=== PATIENT | female | born 1945 | race Caucasian/White ===

== ENCOUNTER 2022-09-12 15:17 | Inpatient (IN) | payer MEDICARE, BC ==
[2022-09-12 16:06] LABS: #Eosinphils 0.1 thou/uL (0.0-0.7); #Lymphocytes 2.3 thou/uL (1.20-3.40); #Monocytes 1.5 thou/uL (0.11-0.59); #Neutrophils 6.3 thou/uL (1.40-6.50); %Basophils 0.3 % (0.0-1.0); %Eosinophils 1.1 % (0.0-10.0); %Lymphocytes 22.3 % (21.0-51.0); %Monocytes 14.4 % (0.0-10.0); %Neutrophils 61.9 % (42.0-75.0); Hemoglobin 15.9 g/dL (12.0-16.0); Mean Corpuscular HGB CONC 32.2 g/dL (32.0-36.0); Mean Corpuscular Hemoglobin 31.7 pg (27.0-31.0); Mean Corpuscular Volume 98.2 fL (78.0-98.0); Mean Platelet Volume 9.2 fL (7.4-10.4); Platelet Count 300 thou/uL (130-400); RBC Distribution Width 12.9 % (11.5-14.5); Red Blood Cell (RBC) Count 5.03 mill/uL (4.20-5.40); White Blood Cell (WBC) Count 10.2 thou/uL (4.8-10.8)
[2022-09-12] MEDS ORDERED: Diltiazem 125 MG/25 ML ONE (16:26)
[2022-09-12] MEDS ORDERED: Enoxaparin Sodium 60 MG/0.6 ML SYRINGE ONE (16:26)
[2022-09-12 16:35] LABS: ALT (SGPT) 17 U/L (8-55); AST (SGOT) 31 U/L (5-34); Albumin 3.5 g/dL (3.4-4.8); Alkaline Phosphatase 92 U/L (40-110); Anion Gap 19 mmol/L (10-20); BUN (Urea Nitrogen) 11 mg/dL (9.8-20.1); Bilirubin, Total 1.7 mg/dL (0.2-1.2); Calc. Creatinine Clearance 0 mL/min (70-130); Calcium 8.8 mg/dL (7.8-10.44); Carbon Dioxide 24 mmol/L (23-31); Chloride 100 mmol/L (98-107); Estimated GFR 78; Globulin 3.5 g/dL (2.4-3.5); Glucose 96 mg/dL (83-110); Sodium 140 mmol/L (136-145)
[2022-09-12 16:44] LABS: CKMB 3.2 ng/mL (0-6.6)
[2022-09-12 16:49] LABS: Potassium 2.9 mmol/L (3.5-5.1)
[2022-09-12] MEDS ORDERED: Electrolyte Replacement Protocol FS SCH (17:30)
[2022-09-12] MEDS ORDERED: hydrOXYzine 25 MG TAB ONE (17:37)
[2022-09-12] MEDS ORDERED: Potassium Chloride 20 MEQ TAB ONE (17:38)
[2022-09-12] MEDS ORDERED: hydrOXYzine 25 MG TAB PO SCH (17:45)
[2022-09-12] MEDS ORDERED: Diltiazem 125 MG in Sodium Chloride 0.9% 100 ML IVPB SCH (18:15)
[2022-09-12] MEDS ORDERED: Acetaminophen 325 MG TAB PO PRN (18:33)
[2022-09-12] MEDS ORDERED: Melatonin 3 MG TAB PO PRN (18:35)
[2022-09-12] MEDS ORDERED: Furosemide 20 MG/2 ML VIAL SLOW IVP SCH (20:00)
[2022-09-12] MEDS ORDERED: Furosemide 40 MG/4 ML VIAL ONE (21:38)
[2022-09-12 22:31] LABS: Anion Gap 22 mmol/L (10-20); BUN (Urea Nitrogen) 10 mg/dL (9.8-20.1); Calc. Creatinine Clearance 0 mL/min (70-130); Calcium 8.4 mg/dL (7.8-10.44); Carbon Dioxide 19 mmol/L (23-31); Chloride 102 mmol/L (98-107); Estimated GFR 90; Glucose 88 mg/dL (83-110); Magnesium 1.3 mg/dL (1.6-2.6); Potassium 3.1 mmol/L (3.5-5.1); Sodium 140 mmol/L (136-145)
[2022-09-12 22:51] LABS: Troponin I Less than 0.010 ng/mL (< 0.028)
[2022-09-13 00:40] VITALS: BMI 27.8
[2022-09-13] MEDS: Communication Order-Pharmacy FS SCH (01:08)
[2022-09-13] MEDS ORDERED: Magnesium Sulfate 4 GM in Sodium Chloride 0.9% 250 ML 250 ML IVPB SCH (01:15)
[2022-09-13] MEDS ORDERED: Potassium Chloride 20 MEQ TAB PO SCH (01:30)
[2022-09-13] MEDS ORDERED: Enoxaparin Sodium 60 MG/0.6 ML SYRINGE SC SCH (09:00)
[2022-09-13] MEDS ORDERED: Lidocaine 1% PF 5 ML VIAL ONE (10:37)
[2022-09-13] MEDS ORDERED: Nitroglycerin 100MG/250ML BOT 0 ML ONE (10:37)
[2022-09-13] MEDS ORDERED: Fentanyl 100 MCG/2 ML VIAL ONE (10:37)
[2022-09-13] MEDS ORDERED: Midazolam HCl 2 mg/2 ml Vial ONE (10:37)
[2022-09-13] MEDS ORDERED: Heparin 10,000 UNITS/ 10 ML VIAL ONE (10:37)
[2022-09-13] MEDS ORDERED: Spironolactone 25 MG TAB PO SCH (11:00)
[2022-09-13] MEDS ORDERED: Communication Order-Pharmacy FS SCH (11:00)
[2022-09-13] MEDS ORDERED: Lidocaine 1% (PF) 30 ML VIAL ONE (11:55)
[2022-09-13] MEDS: Enoxaparin Sodium 60 MG/0.6 ML SYRINGE SC SCH (21:47)
[2022-09-14 05:13] LABS: Anion Gap 21 mmol/L (10-20); BUN (Urea Nitrogen) 5 mg/dL (9.8-20.1); Calc. Creatinine Clearance 67 mL/min (70-130); Calcium 8.8 mg/dL (7.8-10.44); Carbon Dioxide 22 mmol/L (23-31); Chloride 100 mmol/L (98-107); Estimated GFR 89; Glucose 94 mg/dL (83-110); Sodium 140 mmol/L (136-145)
[2022-09-14 05:22] LABS: Potassium 2.7 mmol/L (3.5-5.1)
[2022-09-14 05:57] LABS: Magnesium 1.4 mg/dL (1.6-2.6)
[2022-09-14 06:08] LABS: Band 3 % (5-11); Eosinophils 3 % (0-10); Hemoglobin 15.7 g/dL (12.0-16.0); Lymphocytes 26 % (21-51); MDiff Complete? YES; Mean Corpuscular HGB CONC 32.6 g/dL (32.0-36.0); Mean Corpuscular Hemoglobin 32.3 pg (27.0-31.0); Mean Corpuscular Volume 99.1 fL (78.0-98.0); Mean Platelet Volume 9.4 fL (7.4-10.4); Monocytes 5 % (0-10); Neutrophil 62 % (42-75); Platelet Count 293 thou/uL (130-400); Platelet Morphology Comment Appears Adequate; RBC Morphology Normal; Reactive Lymphocytes 1 % (0-10); Red Blood Cell (RBC) Count 4.85 mill/uL (4.20-5.40); White Blood Cell (WBC) Count 9.2 thou/uL (4.8-10.8)
[2022-09-14] MEDS ORDERED: Norepinephrine 4 MG/4 ML VIAL ONE (06:58)
[2022-09-14] MEDS: Potassium Chloride 40 MEQ in Sodium Chloride 0.9% 250 ML 250 ML IVPB SCH ×2 (06:59→18:43)
[2022-09-14] MEDS ORDERED: Magnesium Sulfate In Water 4 GM in Premix Bag 1 BAG IVPB SCH (08:00)
[2022-09-14] MEDS ORDERED: PHENYLEPHRINE-NS 100 MCG/ML 10 ML SYRINGE ONE (08:13)
[2022-09-14] MEDS ORDERED: PROPOFOL 200 MG/20 ML VIAL ONE (08:13)
[2022-09-14] MEDS ORDERED: Digoxin 0.5 MG/2 ML AMP ONE (08:20)
[2022-09-14] MEDS: Communication Order-Pharmacy FS SCH (09:33)
[2022-09-14] MEDS ORDERED: Potassium Chloride 20 MEQ TAB PO SCH (09:45)
[2022-09-14] MEDS: Empagliflozin 10 MG TAB PO SCH (09:47)
[2022-09-14] MEDS: Enoxaparin Sodium 60 MG/0.6 ML SYRINGE SC SCH ×3 (09:48→21:22)
[2022-09-14] MEDS: Aspirin 81 mg Enteric Coated Tablet PO SCH (09:48)
[2022-09-14] MEDS: Digoxin 0.5 MG/2 ML AMP SLOW IVP SCH ×4 (10:55→15:55)
[2022-09-14] MEDS: Furosemide 40 MG/4 ML VIAL SLOW IVP SCH ×2 (10:56→11:52)
[2022-09-14 18:37] LABS: Potassium 4.6 mmol/L (3.5-5.1)
[2022-09-15 05:16] LABS: Anion Gap 18 mmol/L (10-20); BUN (Urea Nitrogen) 7 mg/dL (9.8-20.1); Calc. Creatinine Clearance 55 mL/min (70-130); Calcium 8.6 mg/dL (7.8-10.44); Carbon Dioxide 24 mmol/L (23-31); Chloride 101 mmol/L (98-107); Estimated GFR 78; Glucose 99 mg/dL (83-110); Magnesium 2.1 mg/dL (1.6-2.6); Potassium 3.5 mmol/L (3.5-5.1); Sodium 139 mmol/L (136-145)
[2022-09-15 05:59] LABS: Band 1 % (5-11); Eosinophils 2 % (0-10); Hemoglobin 16.3 g/dL (12.0-16.0); Lymphocytes 22 % (21-51); MDiff Complete? YES; Macrocytosis SLIGHT = 6-15 cells (100X) (0-5/hpf); Mean Corpuscular HGB CONC 32.7 g/dL (32.0-36.0); Mean Corpuscular Hemoglobin 32.8 pg (27.0-31.0); Mean Platelet Volume 9.3 fL (7.4-10.4); Monocytes 19 % (0-10); Neutrophil 56 % (42-75); Ovalocytes SLIGHT = 2-5 cells (100X) (0-1/hpf); Platelet Count 280 thou/uL (130-400); Platelet Morphology Comment Appears Adequate; RBC Distribution Width 12.8 % (11.5-14.5); Red Blood Cell (RBC) Count 4.96 mill/uL (4.20-5.40); White Blood Cell (WBC) Count 8.3 thou/uL (4.8-10.8)
[2022-09-15] MEDS: Spironolactone 25 MG TAB PO SCH (10:22)
[2022-09-15] MEDS: Aspirin 81 mg Enteric Coated Tablet PO SCH (10:23)
[2022-09-15] MEDS: Empagliflozin 10 MG TAB PO SCH (10:23)
[2022-09-15] MEDS: Digoxin 0.25 MG TAB PO SCH (10:23)
[2022-09-15] MEDS: Furosemide 40 MG/4 ML VIAL SLOW IVP SCH (10:23)
[2022-09-15] MEDS: Enoxaparin Sodium 60 MG/0.6 ML SYRINGE SC SCH ×2 (10:25→21:19)
[2022-09-15] MEDS ORDERED: Potassium Chloride 20 MEQ TAB PO SCH (12:30)
[2022-09-16 06:11] LABS: Anion Gap 17 mmol/L (10-20); BUN (Urea Nitrogen) 8 mg/dL (9.8-20.1); Calc. Creatinine Clearance 51 mL/min (70-130); Calcium 9.1 mg/dL (7.8-10.44); Carbon Dioxide 25 mmol/L (23-31); Chloride 101 mmol/L (98-107); Estimated GFR 72; Glucose 94 mg/dL (83-110); Potassium 3.7 mmol/L (3.5-5.1); Sodium 139 mmol/L (136-145)
[2022-09-16 06:27] LABS: Band 8 % (5-11); Hemoglobin 16.8 g/dL (12.0-16.0); Lymphocytes 11 % (21-51); MDiff Complete? YES; Mean Corpuscular HGB CONC 32.1 g/dL (32.0-36.0); Mean Corpuscular Volume 99.7 fL (78.0-98.0); Mean Platelet Volume 9.3 fL (7.4-10.4); Monocytes 16 % (0-10); Neutrophil 60 % (42-75); Platelet Count 299 thou/uL (130-400); Platelet Morphology Comment Appears Adequate; RBC Distribution Width 12.8 % (11.5-14.5); RBC Morphology Normal; Reactive Lymphocytes 5 % (0-10); Red Blood Cell (RBC) Count 5.26 mill/uL (4.20-5.40); White Blood Cell (WBC) Count 9.2 thou/uL (4.8-10.8)
[2022-09-16 07:49] LABS: Magnesium 1.4 mg/dL (1.6-2.6)
[2022-09-16] MEDS: Furosemide 40 MG/4 ML VIAL SLOW IVP SCH (10:27)
[2022-09-16] MEDS: Aspirin 81 mg Enteric Coated Tablet PO SCH (11:02)
[2022-09-16] MEDS: Digoxin 0.25 MG TAB PO SCH (11:02)
[2022-09-16] MEDS: Spironolactone 25 MG TAB PO SCH (11:02)
[2022-09-16] MEDS: Empagliflozin 10 MG TAB PO SCH (11:03)
[2022-09-16] MEDS: Enoxaparin Sodium 60 MG/0.6 ML SYRINGE SC SCH (11:06)
[2022-09-16] MEDS ORDERED: Magnesium Sulfate 3 GM in Sodium Chloride 0.9% 100 ML IVPB SCH (12:30)
[2022-09-16] MEDS: Apixaban 5 MG TAB PO SCH (20:26)
[2022-09-16 23:10] LABS: Magnesium 2.2 mg/dL (1.6-2.6)
[2022-09-17 05:18] LABS: Anion Gap 17 mmol/L (10-20); BUN (Urea Nitrogen) 8 mg/dL (9.8-20.1); Calc. Creatinine Clearance 59 mL/min (70-130); Calcium 8.6 mg/dL (7.8-10.44); Carbon Dioxide 22 mmol/L (23-31); Chloride 102 mmol/L (98-107); Estimated GFR 78; Glucose 100 mg/dL (83-110); Potassium 3.5 mmol/L (3.5-5.1); Sodium 137 mmol/L (136-145)
[2022-09-17 05:41] LABS: Band 1 % (5-11); Eosinophils 4 % (0-10); Lymphocytes 28 % (21-51); MDiff Complete? YES; Macrocytosis SLIGHT = 6-15 cells (100X) (0-5/hpf); Mean Corpuscular HGB CONC 32.1 g/dL (32.0-36.0); Mean Corpuscular Hemoglobin 32.2 pg (27.0-31.0); Mean Platelet Volume 9.3 fL (7.4-10.4); Monocytes 10 % (0-10); Neutrophil 57 % (42-75); Nucleated RBC 2 % (0); Ovalocytes SLIGHT = 2-5 cells (100X) (0-1/hpf); Platelet Count 262 thou/uL (130-400); Platelet Morphology Comment Appears Adequate; RBC Distribution Width 12.7 % (11.5-14.5); Red Blood Cell (RBC) Count 4.66 mill/uL (4.20-5.40); White Blood Cell (WBC) Count 7.3 thou/uL (4.8-10.8)
[2022-09-17] MEDS ORDERED: Potassium Chloride 20 MEQ TAB PO SCH (08:00)
[2022-09-17] MEDS: Apixaban 5 MG TAB PO SCH (08:10)
[2022-09-17] MEDS: Spironolactone 25 MG TAB PO SCH (08:10)
[2022-09-17] MEDS: Digoxin 0.25 MG TAB PO SCH (08:11)
[2022-09-17] MEDS: Empagliflozin 10 MG TAB PO SCH (08:11)
[2022-09-17] MEDS: Aspirin 81 mg Enteric Coated Tablet PO SCH (08:11)
[2022-09-17] MEDS ORDERED: Furosemide 20 MG TAB PO SCH (09:00)
[2022-09-17 11:29] VITALS: BP 147/65; TEMP 97.4
[2022-09-17] MEDS ORDERED: Atorvastatin Calcium 40 MG TAB PO SCH (21:00)
== END 2022-09-17 13:03 | disposition home or self-care (01) | DRG 286 ==
LOC: ERS 15:17 → ERHOLD 16:59 → 2SW 23:27 → OBSVTOIN 09-13 10:03
PROVIDERS: ADMIT Internal Medicine; ATTEND Internal Medicine
PROC: 4A023N7 Measurement of Cardiac Sampling and Pressure, Left Heart, Percutaneous Approach (ICD-10-PCS; 2022-09-13)
PROC: B2111ZZ Fluoroscopy of Multiple Coronary Arteries using Low Osmolar Contrast (ICD-10-PCS; 2022-09-13)
PROC: B2151ZZ Fluoroscopy of Left Heart using Low Osmolar Contrast (ICD-10-PCS; 2022-09-13)
PROC: B24BZZ4 Ultrasonography of Heart with Aorta, Transesophageal (ICD-10-PCS; principal; 2022-09-14)
DX: I11.0 Hypertensive heart disease with heart failure (principal); I50.23 Acute on chronic systolic (congestive) heart failure; I48.19 Other persistent atrial fibrillation; I47.29 Other ventricular tachycardia; Z66 Do not resuscitate; I42.9 Cardiomyopathy, unspecified; G47.00 Insomnia, unspecified; E78.5 Hyperlipidemia, unspecified; E87.6 Hypokalemia; I48.0 Paroxysmal atrial fibrillation; I51.3 Intracardiac thrombosis, not elsewhere classified; I25.10 Atherosclerotic heart disease of native coronary artery without angina pectoris; E83.42 Hypomagnesemia; Z20.822 Contact with and (suspected) exposure to COVID-19; Z79.899 Other long term (current) drug therapy; Z79.82 Long term (current) use of aspirin; Z98.890 Other specified postprocedural states
CPT/HCPCS: 36415; 71045; 80048; 80053; 82553; 83735; 83880; 84443; 84484; 85025; 92960; 93005; 93306; 93312; 93458; 94760; 96372; 96374; 96375; 99152; G0378; J1160; J1644; J1650; J1940; J2001; J2250; J2704; J3010; J3475; J3480; J3490; J7050; U0003; U0005

== ENCOUNTER 2022-10-10 12:01 | Emergency (ER) | payer MEDICARE, BC ==
[2022-10-10] MEDS ORDERED: Mag-Al 1200 mg/1200 mg/30 ML UDCUP ONE (12:16)
[2022-10-10] MEDS ORDERED: Lidocaine Viscous Sol 2% 15 ml UD Cup ONE (12:16)
[2022-10-10] MEDS ORDERED: Ketorolac Tromethamine 30 MG/ML VIAL ONE (12:16)
== END 2022-10-10 13:11 | disposition home or self-care (01) ==
LOC: ERS 12:01
PROC: B246ZZ4 Ultrasonography of Right and Left Heart, Transesophageal (ICD-10-PCS; principal; 2022-10-10)
PROC: 5A2204Z Restoration of Cardiac Rhythm, Single (ICD-10-PCS; 2022-10-10)
DX: K22.89 Other specified disease of esophagus (principal); I10 Essential (primary) hypertension; I48.19 Other persistent atrial fibrillation; I42.9 Cardiomyopathy, unspecified; I08.1 Rheumatic disorders of both mitral and tricuspid valves; I70.0 Atherosclerosis of aorta; I25.10 Atherosclerotic heart disease of native coronary artery without angina pectoris; I11.0 Hypertensive heart disease with heart failure; I50.9 Heart failure, unspecified; E78.5 Hyperlipidemia, unspecified; Z79.01 Long term (current) use of anticoagulants; Z79.82 Long term (current) use of aspirin; Z79.84 Long term (current) use of oral hypoglycemic drugs; Z79.899 Other long term (current) drug therapy
CPT/HCPCS: 71045; 96374; J1885

== ENCOUNTER 2022-11-21 12:10 | Inpatient (IN) | payer MEDICARE, BC ==
[2022-11-21] MEDS ORDERED: Magnesium 2 GM/50 ML BAG (IN WATER) ONE (12:40)
[2022-11-21 12:55] LABS: #Basophils 0.1 thou/uL (0.0-0.2); #Eosinphils 0.1 thou/uL (0.0-0.7); #Lymphocytes 2.4 thou/uL (1.20-3.40); #Monocytes 1.6 thou/uL (0.11-0.59); #Neutrophils 9.6 thou/uL (1.40-6.50); %Basophils 0.4 % (0.0-1.0); %Eosinophils 0.6 % (0.0-10.0); %Lymphocytes 17.4 % (21.0-51.0); %Monocytes 11.8 % (0.0-10.0); %Neutrophils 69.8 % (42.0-75.0); Hemoglobin 12.7 g/dL (12.0-16.0); Mean Corpuscular HGB CONC 32.4 g/dL (32.0-36.0); Mean Corpuscular Hemoglobin 31.8 pg (27.0-31.0); Mean Corpuscular Volume 98.1 fl (78.0-98.0); Mean Platelet Volume 7.3 fL (7.4-10.4); Platelet Count 649 10x3/uL (130-400); RBC Distribution Width 13.9 % (11.5-14.5); Red Blood Cell (RBC) Count 4.01 mill/uL (4.20-5.40); White Blood Cell (WBC) Count 13.7 10x3/uL (4.8-10.8)
[2022-11-21 13:19] LABS: ALT (SGPT) Less than 7 U/L (8-55); AST (SGOT) 13 U/L (5-34); Albumin 3.2 g/dL (3.4-4.8); Alkaline Phosphatase 110 U/L (40-110); Anion Gap 18 mmol/L (10-20); BUN (Urea Nitrogen) 8 mg/dL (9.8-20.1); Bilirubin, Total 1.2 mg/dL (0.2-1.2); Calc. Creatinine Clearance 0 mL/min (70-130); Calcium 7.9 mg/dL (7.8-10.44); Carbon Dioxide 27 mmol/L (23-31); Chloride 99 mmol/L (98-107); Estimated GFR 81; Globulin 3.2 g/dL (2.4-3.5); Glucose 115 mg/dL (83-110); Protein, Total 6.4 g/dL (5.8-8.1); Sodium 141 mmol/L (136-145)
[2022-11-21 13:25] LABS: Potassium 2.6 mmol/L (3.5-5.1)
[2022-11-21] MEDS ORDERED: Potassium Chloride 20 MEQ/100 ML PREMIX BAG ONE (13:41)
[2022-11-21] MEDS ORDERED: Potassium Chloride 20 MEQ TAB ONE ×2 (13:41→17:53)
[2022-11-21] MEDS ORDERED: Diltiazem 125 MG/25 ML ONE (14:05)
[2022-11-21] MEDS ORDERED: Guaifenesin DM 100-10/5 ML UDCUP PO PRN (14:13)
[2022-11-21] MEDS ORDERED: Ondansetron PF 4 MG/2 ML Vial IVP PRN (14:13)
[2022-11-21] MEDS ORDERED: Senokot S 8.6-50 MG TAB PO PRN (14:13)
[2022-11-21] MEDS ORDERED: Acetaminophen 325 MG TAB PO PRN (14:13)
[2022-11-21] MEDS ORDERED: Potassium Chloride 20 MEQ TAB PO SCH ×2 (14:45→18:00)
[2022-11-21 15:02] LABS: Magnesium 1.3 mg/dL (1.6-2.6)
[2022-11-21] MEDS ORDERED: Magnesium Sulfate 4 GM in Sodium Chloride 0.9% 250 ML 250 ML IVPB SCH (15:15)
[2022-11-21] MEDS ORDERED: Magnesium Sulfate In Water 4 GM in Premix Bag 1 BAG IVPB SCH (15:30)
[2022-11-21 15:53] LABS: SARS-CoV-2 NAA Rapid Test Not Detected (NotDetected)
[2022-11-21] MEDS ORDERED: Furosemide 20 MG TAB PO SCH (16:00)
[2022-11-21] MEDS ORDERED: Furosemide 20 MG/2 ML VIAL ONE (16:14)
[2022-11-21 18:57] VITALS: BMI 23.9
[2022-11-21] MEDS: Atorvastatin Calcium 40 MG TAB PO SCH (20:50)
[2022-11-21] MEDS: Apixaban 5 MG TAB PO SCH (20:50)
[2022-11-22 06:04] LABS: Anion Gap 13 mmol/L (10-20); BUN (Urea Nitrogen) 6 mg/dL (9.8-20.1); Calc. Creatinine Clearance 65 mL/min (70-130); Calcium 7.7 mg/dL (7.8-10.44); Carbon Dioxide 27 mmol/L (23-31); Chloride 102 mmol/L (98-107); Estimated GFR 92; Glucose 96 mg/dL (83-110); Hemoglobin 11.3 g/dL (12.0-16.0); Mean Corpuscular HGB CONC 33.2 g/dL (32.0-36.0); Mean Corpuscular Hemoglobin 32.3 pg (27.0-31.0); Mean Corpuscular Volume 97.1 fl (78.0-98.0); Mean Platelet Volume 7.2 fL (7.4-10.4); Platelet Count 520 10x3/uL (130-400); Sodium 140 mmol/L (136-145); White Blood Cell (WBC) Count 9.1 10x3/uL (4.8-10.8)
[2022-11-22 06:07] LABS: Potassium 2.3 mmol/L (3.5-5.1)
[2022-11-22] MEDS ORDERED: Electrolyte Replacement Protocol 1 EACH FS SCH (06:30)
[2022-11-22 06:39] LABS: Band 2 % (5-11); Lymphocytes 20 % (21-51); MDiff Complete? YES; Monocytes 14 % (0-10); Neutrophil 64 % (42-75)
[2022-11-22] MEDS: Potassium Chloride 20 MEQ in Premix Bag 1 BAG IVPB SCH ×4 (06:52→13:58)
[2022-11-22 06:58] LABS: Magnesium 2.1 mg/dL (1.6-2.6)
[2022-11-22] MEDS: Apixaban 5 MG TAB PO SCH ×2 (08:13→20:05)
[2022-11-22] MEDS: Empagliflozin 10 MG TAB PO SCH (08:13)
[2022-11-22] MEDS ORDERED: Aspirin 81 mg Enteric Coated Tablet PO SCH (09:00)
[2022-11-22 09:32] LABS: Bacteria/HPF 2+ HPF (None Seen); Bilirubin 1+ (Negative); Blood, Urine Negative (Negative); Clarity Turbid (Clear); Glucose, Urine (Dipstick) 500 mg/dL (Negative); Ketone, Urine Trace mg/dL (Negative); Leukocyte Negative Leu/uL (Negative); Nitrite Negative (Negative); Protein, Urine (Dipstick) 30 mg/dL (Neg-Trace); RBC/HPF 0-3 HPF (0-3); Specific Gravity, Urine 1.019 (1.002-1.036); Urobilinogen 6 mg/dL (Less than 2); pH, Urine 6.5 (5.0-9.0)
[2022-11-22 13:36] LABS: Potassium 3.5 mmol/L (3.5-5.1)
[2022-11-22] MEDS ORDERED: Electrolyte Replacement Protocol FS PRN (14:15)
[2022-11-22] MEDS ORDERED: Digoxin 0.5 MG/2 ML AMP SLOW IVP SCH ×3 (14:15→20:00)
[2022-11-22 19:07] LABS: Potassium 3.6 mmol/L (3.5-5.1)
[2022-11-22] MEDS: Atorvastatin Calcium 40 MG TAB PO SCH (20:05)
[2022-11-23 05:13] LABS: Anion Gap 12 mmol/L (10-20); BUN (Urea Nitrogen) 7 mg/dL (9.8-20.1); Calc. Creatinine Clearance 65 mL/min (70-130); Calcium 7.9 mg/dL (7.8-10.44); Carbon Dioxide 25 mmol/L (23-31); Chloride 103 mmol/L (98-107); Estimated GFR 92; Glucose 102 mg/dL (83-110); Potassium 3.2 mmol/L (3.5-5.1); Sodium 137 mmol/L (136-145)
[2022-11-23] MEDS: Empagliflozin 10 MG TAB PO SCH (07:46)
[2022-11-23] MEDS: Spironolactone 25 MG TAB PO SCH (07:46)
[2022-11-23] MEDS: Apixaban 5 MG TAB PO SCH ×2 (07:46→20:03)
[2022-11-23] MEDS ORDERED: Potassium Chloride 20 MEQ TAB PO SCH (08:00)
[2022-11-23] MEDS ORDERED: Digoxin 0.5 MG/2 ML AMP SLOW IVP SCH (09:00)
[2022-11-23 12:32] LABS: Potassium, Urine 25.8 mmol/L
[2022-11-23 16:32] LABS: Potassium 3.9 mmol/L (3.5-5.1)
[2022-11-23] MEDS: Atorvastatin Calcium 40 MG TAB PO SCH (20:03)
[2022-11-24 05:17] LABS: Anion Gap 13 mmol/L (10-20); BUN (Urea Nitrogen) 10 mg/dL (9.8-20.1); Calc. Creatinine Clearance 64 mL/min (70-130); Calcium 8.3 mg/dL (7.8-10.44); Carbon Dioxide 24 mmol/L (23-31); Chloride 105 mmol/L (98-107); Estimated GFR 91; Glucose 109 mg/dL (83-110); Potassium 3.2 mmol/L (3.5-5.1); Sodium 139 mmol/L (136-145)
[2022-11-24 05:21] LABS: Mean Corpuscular HGB CONC 33.4 g/dL (32.0-36.0); Mean Corpuscular Hemoglobin 32.9 pg (27.0-31.0); Mean Corpuscular Volume 98.6 fl (78.0-98.0); Mean Platelet Volume 7.3 fL (7.4-10.4); Platelet Count 456 10x3/uL (130-400); RBC Distribution Width 13.8 % (11.5-14.5); Red Blood Cell (RBC) Count 3.35 mill/uL (4.20-5.40); White Blood Cell (WBC) Count 9.5 10x3/uL (4.8-10.8)
[2022-11-24 05:35] LABS: Band 2 % (5-11); Eosinophils 2 % (0-10); Hypochromia SLIGHT = 6-15 cells (100X) (0-5/hpf); Lymphocytes 12 % (21-51); MDiff Complete? YES; Monocytes 11 % (0-10); Neutrophil 73 % (42-75); Platelet Morphology Comment Appears Adequate
[2022-11-24 07:51] VITALS: BP 141/62; TEMP 97.9
[2022-11-24] MEDS ORDERED: Potassium Chloride 20 MEQ TAB PO SCH (08:00)
[2022-11-24] MEDS: Spironolactone 25 MG TAB PO SCH (08:11)
[2022-11-24] MEDS: Apixaban 5 MG TAB PO SCH (08:11)
[2022-11-24] MEDS ORDERED: Empagliflozin 10 MG TAB PO SCH (09:00)
[2022-11-24] MEDS ORDERED: Digoxin 0.25 MG TAB PO SCH (09:00)
== END 2022-11-24 09:36 | disposition home or self-care (01) | DRG 308 ==
LOC: ERS 12:10 → ERHOLD 14:27 → 2SW 18:41 → OBSVTOIN 11-22 13:57
PROVIDERS: ADMIT Hospitalist; ATTEND Hospitalist
DX: I48.19 Other persistent atrial fibrillation (principal); I50.23 Acute on chronic systolic (congestive) heart failure; I31.39 Other pericardial effusion (noninflammatory); I11.0 Hypertensive heart disease with heart failure; Z20.822 Contact with and (suspected) exposure to COVID-19; I42.8 Other cardiomyopathies; E78.5 Hyperlipidemia, unspecified; E87.6 Hypokalemia; E83.42 Hypomagnesemia; Z79.899 Other long term (current) drug therapy; Z79.82 Long term (current) use of aspirin; Z79.01 Long term (current) use of anticoagulants
CPT/HCPCS: 36415; 71045; 80048; 80053; 81001; 83735; 83880; 84133; 84484; 85025; 93005; 93306; J1160; J1940; J3475; J3480; U0002